=== PATIENT | female | born 1960 | race Asian ===

== ENCOUNTER 2017-03-02 06:30 | Emergency (ER) | payer OTHER ==
[2017-03-02 06:35] VITALS: BP 154/99
[2017-03-02 07:07] LABS: CHLORIDE,CL 104 mEq/L (98-106); SODIUM,NA 142 mEq/L (136-145)
[2017-03-02] MEDS ORDERED: Acetaminophen 325 MG Tab ONE (07:12)
[2017-03-02] MEDS ORDERED: Acetaminophen 325 MG Tab PO ONE (07:19)
--- NOTE | 2017-03-02 08:06 | EDM.PDOC ---
ED HPI GENERAL MEDICAL PROBLEM - General Chief Complaint: Abdominal Pain Stated Complaint: incisional pain Time Seen by Provider: 03/02/17 07:05 Source of Information: Reports: Patient, Family () History Limitations: Reports: No Limitations - History of Present Illness INITIAL COMMENTS - FREE TEXT/NARRATIVE: Hanh vernon a 56 yo female who presents to the ER with complaints of left sided abdominal pain. states she had a hysterectomy on 02/26/[address] [facility] by Dr. Pruitt and was discharged yesterday. she ahs been taking Powell tablets for the discomfort. States last night the pain started and she didn't sleep much thru the night. Hasn't had any bowel movements and tried this morning with minimal relief and very hard stool. She states the pain comes and goes. Is able to pass some gas. states she is from the [facility] and has some difficulty speaking Azeri. Denies any pain at the incision sites. Initially surgery was attempted via laparoscope but ended up having to do an open surgery. Left Abdomen Pain Score (Numeric/FACES): 8 - Related Data Allergies Allergy/AdvReac Type Severity Reaction Status Date / Time No Known Allergies Allergy Verified 03/02/17 06:35 Home Meds: Home Meds Cholecalciferol (Vitamin D3) [Vitamin D3] 1,000 unit PO DAILY 11/08/16 [History] Flaxseed/Omega3,6,9/Fatty Acid [Flax Seed Oil 1,300 mg Softgel] 1 each PO DAILY 11/08/16 [History] Losartan Potassium 50 mg PO DAILY 11/08/16 [History] Magnesium 200 mg PO DAILY 11/08/16 [History] [place]-3 Fatty Acids [Fish Oil] 300 mg PO DAILY 11/08/16 [History] Vitamin E 1,000 unit PO DAILY 11/08/16 [History] Hydrocodone/Acetaminophen [Hydrocodon-Acetaminophen 5-325] 1 - 2 tab PO Q4H PRN 03/02/17 [History] Ibuprofen 800 mg PO Q8H PRN 03/02/17 [History] Past Medical History Cardiovascular History: Reports: Hypertension 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 Denies: Fever, Chills Respiratory: Reports: No Symptoms Cardiovascular: Reports: No Symptoms GI/Abdominal: Reports: Abdominal Pain (LLQ), Constipation, Flatus. Denies: Diarrhea, Nausea, Vomiting : Reports: No Symptoms ED EXAM, GI/ABD - Physical Exam Exam: See Below Exam Limited By: Language Barrier General Appearance: Alert, Mild Distress Ears: Normal External Exam, Hearing Grossly Normal Nose: Normal Inspection Throat/Mouth: Normal Inspection, Normal Lips, Normal Voice, No Airway Compromise Head: Atraumatic, Normocephalic Neck: Normal Inspection, Supple Respiratory/Chest: No Respiratory Distress, Lungs Clear, Normal Breath Sounds Cardiovascular: Regular Rate, Rhythm, No Edema, No Murmur GI/Abdominal: Normal Bowel Sounds, Soft, No Organomegaly, No Abnormal Bruit, Tenderness (LLQ). No: Distention, Rebound, Rigidity, Mass, McBurney's Sign Extremities: Normal Inspection, Normal Capillary Refill Neurological: Alert, Oriented, No Motor/Sensory Deficits Psychiatric: Normal Affect, Normal Mood Skin Exam: Warm, Dry, Intact, Normal Color, No Rash, Wound/Incision (healing well, no dehiscence. No hematoma noted. ) Course - Vital Signs Last Recorded V/S: Last Vital Signs Temp 99.6 F 03/02/17 06:31 Pulse 85 03/02/17 06:31 Resp 18 03/02/17 06:31 BP 154/99 H 03/02/17 06:31 Pulse Ox 94 L 03/02/17 06:31 - Orders/Labs/Meds Orders: Active Orders 24 hr Category Date Time Status Enema [RC] ASDIRECTED Care 03/02/17 07:29 Active Abdomen 2V AP Flat Upright [CR] Stat Exams 03/02/17 06:46 Taken Labs: Laboratory Tests 03/02/17 03/02/17 Range/Units 06:50 06:50 WBC 5.0 (5.0-10.0) 10^3/uL RBC 3.74 L (4.00-5.50) 10^6/uL Hgb 11.2 L (12.0-16.0) g/dL Hct 33.3 L (37.0-47.0) % MCV 89.0 (82.0-94.0) fL MCH 29.9 (27.0-32.0) pg MCHC 33.6 (33.0-38.0) g/dL RDW Coeff of Mirtha 12.9 (11.0-15.0) % Plt Count 151 (150-400) 10^3/uL Neut % (Auto) 62.0 (35-85) % Lymph % (Auto) 24.8 (10-55) % [place] % (Auto) 6.2 (0-16) % Eos % (Auto) 6.8 H (0-5) % Baso % (Auto) 0.2 (0-3) % Neut # (Auto) 3.09 (1.80-7.00) 10^3/uL Lymph # (Auto) 1.24 (1.00-4.80) 10^3/uL [place] # (Auto) 0.31 (0.00-0.80) 10^3/uL Eos # (Auto) 0.34 (0.00-0.45) 10^3/uL Baso # (Auto) 0.01 10^3/uL Sodium 142 (136-145) mEq/L Potassium 4.1 (3.5-5.0) mEq/L Chloride 104 (98-106) mEq/L Carbon Dioxide 29 (21-32) mmol/L BUN 11 (7-18) mg/dL Creatinine 0.8 (0.6-1.0) mg/dL Est Cr Clr Drug Dosing 56.40 mL/min Estimated GFR (MDRD) > 60 (>=60) mL/min Glucose 116 H (75-99) mg/dL Calcium 8.7 (8.4-10.1) mg/dL Total Bilirubin 0.9 (0.0-1.0) mg/dL AST 23 (15-37) U/L ALT 31 (12-78) U/L Alkaline Phosphatase 81 (46-116) U/L Total Protein 7.2 (6.4-8.2) g/dL Albumin 3.5 (3.4-5.0) g/dL Meds: Medications Discontinued Medications Generic Name Dose Route Start Last Admin Trade Name Freq PRN Reason Stop Dose Admin Acetaminophen 650 mg 03/02/17 07:19 03/02/17 07:21 Tylenol PO 03/02/17 07:20 650 mg NOW ONE Administration Acetaminophen Confirm 03/02/17 07:12 03/02/17 07:23 Tylenol Administered 03/02/17 07:13 Not Given Dose 650 mg .ROUTE .STK-MED ONE - Re-Assessments/Exams Free Text/Narrative Re-Assessment/Exam: 03/02/17 08:09 X-ray confirmed moderate amount of stool present in the descending colon. Proceeded with Soap Suds enema with moderate amount of stool evacuated. Tolerated well and pain subsided. No current complaints. Departure - Departure Time of Disposition: 08:10 Disposition: Home, Self-Care 01 Condition: good Clinical Impression: Constipation Qualifiers: Constipation type: drug induced constipation Qualified Code(s): K59.03 - Drug induced constipation - Discharge Information Instructions: Constipation, Adult, [id number] Referrals: Sterling Perez MD [Primary Care Provider] - (Follow up next week with Dr. Perez on Saturday) Forms: ED Department Discharge Additional Instructions: 1) Miralax 17 gms daily 2) Rest 3) Continue to follow discharge instructions from Dr. Pruitt 4) If pain returns or any concerns at all, advise returning for reevaluation. - Problem List & Annotations (1) Constipation SNOMED Code(s): 88405888 Code(s): K59.00 - CONSTIPATION, UNSPECIFIED Status: Acute Current Visit: Yes Qualifiers: Constipation type: drug induced constipation Qualified Code(s): K59.03 - Drug induced constipation - Problem List Review Problem List Initiated/Reviewed/Updated: Yes - My Orders Last 24 Hours: My Active Orders 03/02/17 06:46 Abdomen 2V AP Flat Upright [CR] Stat 03/02/17 07:29 Enema [RC] ASDIRECTED - Assessment/Plan Last 24 Hours: My Active Orders 03/02/17 06:46 Abdomen 2V AP Flat Upright [CR] Stat 03/02/17 07:29 Enema [RC] ASDIRECTED Plan: See course, will discharge at this time. Patient presently has no discomfort or concerns.
== END 2017-03-02 08:20 | disposition home or self-care (01) ==
LOC: CC.ED 06:30
DX: K59.03 Drug induced constipation (principal); I10 Essential (primary) hypertension; Z79.899 Other long term (current) drug therapy; Z90.710 Acquired absence of both cervix and uterus
CPT/HCPCS: 36415; 74020; 80053; 85025; 99284; A9270

== ENCOUNTER 2017-03-27 21:00 | Emergency (ER) | payer OTHER ==
[2017-03-27] MEDS ORDERED: Nitroglycerin 0.4 MG Tab.SL SL ONE (21:23)
--- NOTE | 2017-03-27 22:17 | EDM.PDOC ---
ED HPI GENERAL MEDICAL PROBLEM - General Chief Complaint: Cardiovascular Problem Stated Complaint: high blood pressure Time Seen by Provider: 03/27/17 21:40 Source of Information: Reports: Patient, Family History Limitations: Reports: No Limitations - History of Present Illness INITIAL COMMENTS - FREE TEXT/NARRATIVE: Patient presents with concerns in regards to her blood pressure. She relates that she had a headache earlier and her jaw was numb so she took her blood pressure and it was quite high at 170/106. She did take her Losartan at that time but got concerned. Patient had stopped her Losartan as her and her have been taking tumeric and stewart and was doing quite well. Had a hysterectomy 4 weeks ago and had a recheck appointment earlier today. Has been having more pain in her abdomen, had labs done there earlier and was supposed to call them back for results. states they didn't say anything about her blood pressure at that visit. Was experiencing mild chest pain and palpitations at home. No pain at present. Jaw is better. No shortness of breath. Onset: Today, Gradual Duration: Hour(s): Location: Reports: Head Quality: Reports: Throbbing Severity: Moderate Improves with: Reports: Medication Associated Symptoms: Reports: Chest Pain. Denies: Nausea/Vomiting, Shortness of Breath, Syncope Treatments CAE ENGINEER: Reports: Other Medication(s) Other Treatments CAE ENGINEER: losartan 50 mg Headache Pain Score (Numeric/FACES): 5 - Related Data Allergies Allergy/AdvReac Type Severity Reaction Status Date / Time No Known Allergies Allergy Verified 03/27/17 21:09 Home Meds: Home Meds Cholecalciferol (Vitamin D3) [Vitamin D3] 1,000 unit PO DAILY 11/08/16 [History] Flaxseed/Omega3,6,9/Fatty Acid [Flax Seed Oil 1,300 mg Softgel] 1 each PO DAILY 11/08/16 [History] Losartan Potassium 50 mg PO DAILY 11/08/16 [History] Magnesium 200 mg PO DAILY 11/08/16 [History] [place]-3 Fatty Acids [Fish Oil] 300 mg PO DAILY 11/08/16 [History] Vitamin E 1,000 unit PO DAILY 11/08/16 [History] Ibuprofen 800 mg PO Q8H PRN 03/02/17 [History] Past Medical History HEENT History: Reports: Impaired Vision, Other (See Below) Other HEENT History: TMJ 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 Denies: Fever, Chills HEENT: Reports: Other (jaw pain) Respiratory: Denies: Shortness of Breath, Cough Cardiovascular: Reports: Chest Pain. Denies: Edema, Lightheadedness Endocrine: Denies: Fatigue GI/Abdominal: Reports: Abdominal Pain (dull post op pain). Denies: Nausea, Vomiting : Reports: No Symptoms Musculoskeletal: Reports: No Symptoms Skin: Reports: Other (abdominal incision) Neurological: Reports: Headache Psychiatric: Reports: No Symptoms ED EXAM, GENERAL - Physical Exam Exam: See Below Exam Limited By: No Limitations General Appearance: Alert, WD/WN, No Apparent Distress Eye Exam: Bilateral Eye: PERRL Ears: Normal External Exam, Normal TMs Nose: Normal Inspection, Normal Mucosa, No Blood Throat/Mouth: Normal Inspection, Normal Oropharynx Head: Normocephalic Neck: Normal Inspection, Supple, Non-Tender Respiratory/Chest: No Respiratory Distress, Lungs Clear, Normal Breath Sounds Cardiovascular: Normal Peripheral Pulses, Regular Rate, Rhythm GI/Abdominal: Normal Bowel Sounds, Soft, Non-Tender Extremities: Normal Inspection, Normal Capillary Refill Neurological: Alert, Oriented Skin Exam: Warm, Dry Course - Vital Signs Last Recorded V/S: Last Vital Signs Temp 97.9 F 03/27/17 21:07 Pulse 67 03/27/17 21:07 Resp 18 03/27/17 21:07 BP 137/83 03/27/17 22:20 Pulse Ox 99 03/27/17 21:07 - Orders/Labs/Meds Orders: Active Orders 24 hr Category Date Time Status EKG Documentation Completion [RC] STAT Care 03/27/17 21:19 Active Chest 2V [CR] Stat Exams 03/27/17 21:18 Taken Labs: Laboratory Tests 03/27/17 Range/Units 21:30 Lactate Dehydrogenase 159 (100-190) U/L Creatine Kinase 46 (21-215) U/L Troponin I < 0.017 (0.00-0.06) ng/mL Meds: Medications Discontinued Medications Generic Name Dose Route Start Last Admin Trade Name Doe PRN Reason Stop Dose Admin Nitroglycerin 0.4 mg 03/27/17 21:23 03/27/17 21:28 Nitrostat SL 03/27/17 21:24 0.4 mg ONETIME ONE Administration - Re-Assessments/Exams Free Text/Narrative Re-Assessment/Exam: 03/27/17 8245 Lab results reviewed. Are negative. CXR negative. EKG normal sinus. Advised patient and of results. Blood pressure improved on admit and better even after the nitro. Departure - Departure Time of Disposition: 22:18 Disposition: Home, Self-Care 01 Condition: Good Clinical Impression: Hypertensive urgency Referrals: Sterling Perez MD [Primary Care Provider] - Forms: ED Department Discharge Additional Instructions: 1. Rest 2. Tylenol for headache 3. Take Losartan 50 mg as directed 4. Follow up with Dr. Perez for recheck. Do not stop the Losartan without further direction 5. Call with any questions - My Orders Last 24 Hours: My Active Orders 03/27/17 21:18 Chest 2V [CR] Stat 03/27/17 21:19 EKG Documentation Completion [RC] STAT - Assessment/Plan Last 24 Hours: My Active Orders 03/27/17 21:18 Chest 2V [CR] Stat 03/27/17 21:19 EKG Documentation Completion [RC] STAT
[2017-03-27 22:20] VITALS: BP 137/83
== END 2017-03-27 22:30 | disposition home or self-care (01) ==
LOC: CC.ED 21:00
DX: I16.0 Hypertensive urgency (principal); Z90.710 Acquired absence of both cervix and uterus; Z98.890 Other specified postprocedural states; Z79.899 Other long term (current) drug therapy
CPT/HCPCS: 36415; 71020; 82550; 83615; 84484; 93005; 99284; A9270

== ENCOUNTER 2017-03-31 12:56 | Emergency (ER) | payer OTHER ==
--- NOTE | 2017-03-31 13:19 | EDM.PDOC ---
ED HPI GENERAL MEDICAL PROBLEM - General Chief Complaint: Cardiovascular Problem Stated Complaint: high BP Time Seen by Provider: 03/31/17 12:57 Source of Information: Reports: Patient, Family History Limitations: Reports: No Limitations - History of Present Illness INITIAL COMMENTS - FREE TEXT/NARRATIVE: This patient is a 56 year old female that presents to the ER. This patient has multiple unrelating complaints. The patient reports that she was seen in the ER recently for high blood pressure. The patient reports that again today she was sitting at home, just went to the bathroom, came out and took her blood pressure. She reports she did have hard stool with constipation. She reports a reading of 170s over 107. She reports she became concerned and came to the ER. She reports over the past several days she has had global headache, left jaw pain that she says is TMJ, bilateral arm numbness, chest pain of the left side that she says is her left breast hurting, abdominal rumbling, constipation, blurred vision at times when her BP is high, general weakness, nausea, hot flashes. The patient denies neck pain, neck stiffness, back pain, abd pain, urinary changes, rashes, shortness of breath, syncope. She does report that she had a hysterectomy done 1 month, 2 days ago. I have ordered cardiac workup, urine, and head ct. A this time the patient blood pressure is 146/90. Onset Date: 03/27/17 Location: Reports: Head, Chest Severity: Mild Improves with: Reports: None Worsens with: Reports: None Associated Symptoms: Reports: Chest Pain, Headaches, Nausea/Vomiting, Weakness ( generally). Denies: Confusion, Cough, cough w sputum, Diaphoresis, Fever/Chills , Loss of Appetite, Malaise, Rash, Seizure, Shortness of Breath, Syncope - Related Data Allergies Allergy/AdvReac Type Severity Reaction Status Date / Time No Known Allergies Allergy Verified 03/31/17 13:06 Home Meds: Home Meds Cholecalciferol (Vitamin D3) [Vitamin D3] 1,000 unit PO DAILY 11/08/16 [History] Flaxseed/Omega3,6,9/Fatty Acid [Flax Seed Oil 1,300 mg Softgel] 1 each PO DAILY 11/08/16 [History] Losartan Potassium 50 mg PO DAILY 11/08/16 [History] Magnesium 200 mg PO DAILY 11/08/16 [History] [place]-3 Fatty Acids [Fish Oil] 300 mg PO DAILY 11/08/16 [History] Vitamin E 1,000 unit PO DAILY 11/08/16 [History] Ibuprofen 800 mg PO Q8H PRN 03/02/17 [History] metroNIDAZOLE [Vandazole 0.75% Gel] 1 applic IUTERINE DAILY 03/31/17 [History] Past Medical History HEENT History: Reports: Impaired Vision, Other (See Below) Other HEENT History: TMJ 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 Denies: Syncope Endocrine: Reports: No Symptoms GI/Abdominal: Reports: Constipation, Nausea. Denies: Vomiting : Reports: No Symptoms Musculoskeletal: Reports: No Symptoms Skin: Reports: No Symptoms Neurological: Reports: Headache, Other (numbness bilateral arms. ) Psychiatric: Reports: No Symptoms Hematologic/Lymphatic: Reports: No Symptoms Immunologic: Reports: No Symptoms ED EXAM, GENERAL - Physical Exam Exam: See Below Exam Limited By: No Limitations General Appearance: Alert, WD/WN, No Apparent Distress Eye Exam: Bilateral Eye: EOMI, Normal Inspection, PERRL Ears: Normal External Exam, Normal Canal, Hearing Grossly Normal, Normal TMs Ear Exam: Bilateral Ear: Auricle Normal, Canal Normal, TM normal Nose: Normal Inspection, Normal Mucosa, No Blood Throat/Mouth: Normal Inspection, Normal Lips, Normal Teeth, Normal Gums, Normal Oropharynx, Normal Voice, No Airway Compromise Head: Atraumatic, Normocephalic Neck: Normal Inspection, Supple, Non-Tender, Full Range of Motion Respiratory/Chest: No Respiratory Distress, Lungs Clear, Normal Breath Sounds, No Accessory Muscle Use, Chest Non-Tender Cardiovascular: Normal Peripheral Pulses, Regular Rate, Rhythm, No Edema, No Gallop, No JVD, No Murmur, No Rub Peripheral Pulses: 2+: Carotid (L), Carotid (R), Radial (L), Radial (R), Posterior Tibial (L), Posterior Tibial (R) GI/Abdominal: Normal Bowel Sounds, Soft, Non-Tender, No Organomegaly, No Distention, No Abnormal Bruit, No Mass, Pelvis Stable, Other (healing vertical scar from surgery. No redness, no heat, no draiange, no infection signs. ) Neurological: Alert, Oriented, CN II-XII Intact, Normal Cognition, Normal Gait, No Motor/Sensory Deficits Psychiatric: Normal Affect, Normal Mood Skin Exam: Warm, Dry, Intact, Normal Color, No Rash Lymphatic: No Adenopathy EKG INTERPRETATION EKG Date: 03/31/17 Time: 13:24 Rhythm: NSR Rate (Beats/Min): 64 Hallie: Normal P-Wave: Present QRS: Normal ST-T: Normal QT: Normal Course - Vital Signs Last Recorded V/S: Last Vital Signs Temp 99.2 F 03/31/17 12:57 Pulse 69 03/31/17 12:57 Resp 20 03/31/17 12:57 BP 145/87 H 03/31/17 13:53 Pulse Ox 97 03/31/17 12:57 - Orders/Labs/Meds Orders: Active Orders 24 hr Category Date Time Status Chest 2V [CR] Stat Exams 03/31/17 13:12 Taken Head wo Cont [CT] Stat Exams 03/31/17 13:12 Taken EKG 12 Lead [EK] Routine Ther 03/31/17 14:22 Ordered Labs: Laboratory Tests 03/31/17 03/31/17 03/31/17 Range/Units 13:12 13:12 13:30 WBC 4.3 L (5.0-10.0) 10^3/uL RBC 4.41 (4.00-5.50) 10^6/uL Hgb 13.0 (12.0-16.0) g/dL Hct 38.9 (37.0-47.0) % MCV 88.2 (82.0-94.0) fL MCH 29.5 (27.0-32.0) pg MCHC 33.4 (33.0-38.0) g/dL RDW Coeff of Mirtha 12.6 (11.0-15.0) % Plt Count 162 (150-400) 10^3/uL Neut % (Auto) 43.3 (35-85) % Lymph % (Auto) 45.5 (10-55) % [place] % (Auto) 7.5 (0-16) % Eos % (Auto) 3.5 (0-5) % Baso % (Auto) 0.2 (0-3) % Neut # (Auto) 1.84 (1.80-7.00) 10^3/uL Lymph # (Auto) 1.94 (1.00-4.80) 10^3/uL [place] # (Auto) 0.32 (0.00-0.80) 10^3/uL Eos # (Auto) 0.15 (0.00-0.45) 10^3/uL Baso # (Auto) 0.01 10^3/uL Sodium 142 (136-145) mEq/L Potassium 4.0 (3.5-5.0) mEq/L Chloride 103 (98-106) mEq/L Carbon Dioxide 30 (21-32) mmol/L BUN 12 (7-18) mg/dL Creatinine 0.6 (0.6-1.0) mg/dL Est Cr Clr Drug Dosing TNP Estimated GFR (MDRD) > 60 (>=60) mL/min Glucose 95 (75-99) mg/dL Calcium 9.7 (8.4-10.1) mg/dL Total Bilirubin 0.9 (0.0-1.0) mg/dL AST 15 (15-37) U/L ALT 30 (12-78) U/L Alkaline Phosphatase 89 (46-116) U/L Troponin I < 0.017 (0.00-0.06) ng/mL Total Protein 8.4 H (6.4-8.2) g/dL Albumin 4.3 (3.4-5.0) g/dL TSH, Ultra Sensitive 1.51 (0.36-5.60) uIU/mL Urine Color Yellow (YELLOW) Urine Appearance Clear (CLEAR) Urine pH 5.5 (4.5-8.0) Ur Specific [place] 1.004 (1.003-1.020) Urine Protein Negative (NEGATIVE) mg/dL Urine Glucose (UA) Negative (NEGATIVE) mg/dL Urine Ketones Negative (NEGATIVE) mg/dL Urine Occult Blood Negative (NEGATIVE) Urine Nitrite Negative (NEGATIVE) Urine Bilirubin Negative (NEGATIVE) Urine Urobilinogen 0.2 (0.2-1.0) EU/dL Ur Leukocyte Esterase Negative (NEGATIVE) Urine RBC Not seen (0-5) /HPF Urine WBC Not seen (0-5) /HPF Ur Squamous Epith Cells Occasional H (NOT SEEN) /HPF - Radiology Interpretation Free Text/Narrative:: Head CT: Discussed with radiologist: No bleed, nothing acute, no fx. CT Results Date: 03/31/17 CT Results Time: 14:00 - Re-Assessments/Exams Free Text/Narrative Re-Assessment/Exam: 03/31/17 14:35 Patient reported that she had a short period where she experienced palpitations , ekg was done during this time. Rate is 64, SR, unchanged from previous. 03/31/17 14:51 I have reviewed patient labs, ekg, tests. Everything is unremarkable. At this time, I believe this possibly is due to her hysterecomty and hormone changes. She may also need a holtor monitor set up by her PCP. 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 STABLE. Departure - Departure Time of Disposition: 14:54 Disposition: Home, Self-Care 01 Condition: Good Clinical Impression: Hypertensive urgency Chest pain Qualifiers: Chest pain type: unspecified Qualified Code(s): R07.9 - Chest pain, unspecified Instructions: Hypertension, [id number] Referrals: Sterling Perez MD [Primary Care Provider] - Forms: ED Department Discharge Additional Instructions: Followup with your director dental services Followup with your primary care provider Return to the ER for worsening of condition or any emergent concerns Increase fluids Increase fiber in your diet Take your medications as prescribed - My Orders Last 24 Hours: My Active Orders 03/31/17 13:12 Chest 2V [CR] Stat Head wo Cont [CT] Stat 03/31/17 14:22 EKG 12 Lead [EK] Routine - Assessment/Plan Last 24 Hours: My Active Orders 03/31/17 13:12 Chest 2V [CR] Stat Head wo Cont [CT] Stat 03/31/17 14:22 EKG 12 Lead [EK] Routine Plan: PLEASE SEE RN NOTE FOR PFSH.
[2017-03-31 13:45] LABS: CHLORIDE,CL 103 mEq/L (98-106); SODIUM,NA 142 mEq/L (136-145)
[2017-03-31 14:21] VITALS: BP 145/87
== END 2017-03-31 15:10 | disposition home or self-care (01) ==
LOC: CC.ED 12:56
DX: I16.0 Hypertensive urgency (principal); R07.9 Chest pain, unspecified; H54.7 Unspecified visual loss; Z90.710 Acquired absence of both cervix and uterus; Z79.899 Other long term (current) drug therapy
CPT/HCPCS: 36415; 70450; 71020; 80053; 81001; 84443; 84484; 85025; 93005; 99284

== ENCOUNTER 2017-08-19 22:46 | Emergency (ER) | payer OTHER ==
[2017-08-19] MEDS ORDERED: Sulfamethoxazole/Trimethoprim 800-160 MG Tab PO ONE (22:47)
[2017-08-19] MEDS ORDERED: traMADol 50 MG Tab PO ONE (22:47)
[2017-08-19] MEDS ORDERED: Take Home: traMADol 50 MG, 4 Tab Pack PO ONE (23:34)
[2017-08-19] MEDS ORDERED: Take Home: Sulfamethoxazole/Trimethoprim 800-160 MG Tab, 2 Tab Pack PO ONE (23:35)
[2017-08-19] MEDS ORDERED: Bisacodyl 10 MG Supp RECTAL ONE (23:35)
--- NOTE | 2017-08-19 23:41 | EDM.PDOC ---
ED HPI GENERAL MEDICAL PROBLEM - General Chief Complaint: Back Pain or Injury Stated Complaint: L)upper back pain Time Seen by Provider: 08/19/17 23:18 Source of Information: Reports: Patient, Family History Limitations: Reports: No Limitations - History of Present Illness INITIAL COMMENTS - FREE TEXT/NARRATIVE: Patient presents to [facility] for plethora of complaints. First complaint is in regards to ongoing shoulder and back pain. States Dr. Perez gave her trigger point injections last Saturday and she hasn't felt much relief with them. Denies any injury. Has not seen PT. States they have done a lot of travelling lately so pain may have been triggered by that as well as she admits she has been under more stress. Second, patient is concerned about her blood pressure. Took her blood pressure pill an hour before coming here and checked it and is was 170/107. She has been seen by Dr. Perez recently and her blood pressures were normal with those visits. Has had intermittent issues however with her blood pressure. She was recently in [place] and was seen there by a physician who put her on Amlodopine. She isn't currently taking this as her believes it is a "terrible drug that cuts your circulation off to your muscles as it did with him". She denies chest pain or shortness of breath related to this. Third, patient concerned about ongoing issues with constipation. She has also had this multiple times and was advised to take a stool softener and Miralax but she is not compliant with this. She admits when she was in [place], she did better because she ate better and did more walking. Hasn't had much of a bowel movement in the last week or so and feels she is currently "backed up". Fourth, mentions that she has had ongoing breast concerns. Is actually waiting for a report on this from the clinic. Fifth, admits that she gets dizzy at times. Has been voiding more often with some burning. Not taking any of her Meclizine. questions if bladder infection as when they are in the [facility], they wash their bottoms with a cup of water and he feels it is not clean enough. Duration: Week(s): Location: Reports: Head, Neck, Abdomen, Back Associated Symptoms: Reports: Headaches, Weakness. Denies: Confusion, Chest Pain, Cough, Diaphoresis, Loss of Appetite, Nausea/Vomiting, Shortness of Breath , Syncope Treatments HANDBAG FRAMER: Reports: Other Medication(s) Other Treatments HANDBAG FRAMER: blood pressure pill this evening Left Upper Back Pain Score (Numeric/FACES): 5 - Related Data Allergies Allergy/AdvReac Type Severity Reaction Status Date / Time No Known Allergies Allergy Verified 08/19/17 22:52 Home Meds: Home Meds Losartan Potassium 50 mg PO BID 11/08/16 [History] Ibuprofen 800 mg PO Q8H PRN 03/02/17 [History] Meclizine [Antivert] 25 mg PO DAILY 08/19/17 [History] Past Medical History HEENT History: Reports: Impaired Vision, Other (See Below) Other HEENT History: TMJ Cardiovascular History: Reports: Hypertension Gastrointestinal History: Reports: Chronic Constipation Genitourinary History: Reports: None 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 Denies: Fever, Chills, Malaise, Weakness, Decreased Appetite HEENT: Denies: Ear Pain, Sinus Problem, Throat Pain, Vertigo Respiratory: Denies: Shortness of Breath, Pleuritic Chest Pain, Cough Cardiovascular: Reports: Chest Pain. Denies: Edema, Lightheadedness Endocrine: Reports: Fatigue GI/Abdominal: Reports: Constipation. Denies: Abdominal Pain, Nausea, Vomiting : Reports: Dysuria, Frequency Musculoskeletal: Reports: Shoulder Pain Skin: Reports: No Symptoms Neurological: Reports: Dizziness, Headache Psychiatric: Reports: No Symptoms ED EXAM, UPPER BACK/NECK PAIN - Physical Exam Exam: See Below Exam Limited By: No Limitations General Appearance: Alert, WD/WN, No Apparent Distress Ears Exam: Normal External Exam, Normal TMs Nose Exam: Normal Inspection, Normal Mucousa, No Blood Throat/Mouth Exam: Normal Inspection, Normal Oropharynx Head Exam: Normocephalic Neck Exam: Non-Tender, Full Range of Motion, Tenderness, Tender Lateral Cardiovascular/Respiratory: Regular Rate, Rhythm, Normal Peripheral Pulses GI/Abdominal: Normal Bowel Sounds, Soft, Non-Tender Back Exam: Muscle Spasm (bilateral trapezius area) Extremities: Normal Inspection, Normal Capillary Refill Neurologic: No Motor/Sensory Deficits Psychiatric: Normal Affect, Normal Mood Skin Exam: Normal Color, Warm/Dry Lymphatic: No Adenopathy Course - Vital Signs Last Recorded V/S: Last Vital Signs Temp 97.1 F 08/19/17 22:47 Pulse 74 08/19/17 23:24 Resp 20 08/19/17 22:47 BP 176/105 H 08/20/17 00:06 Pulse Ox 97 08/19/17 22:47 - Orders/Labs/Meds Labs: Laboratory Tests 08/19/17 Range/Units 22:58 Urine Color Straw (YELLOW) Urine Appearance Clear (CLEAR) Urine pH 5.0 (4.5-8.0) Ur Specific [place] <= 1.005 (1.003-1.020) Urine Protein Negative (NEGATIVE) mg/dL Urine Glucose (UA) Negative (NEGATIVE) mg/dL Urine Ketones Negative (NEGATIVE) mg/dL Urine Occult Blood Negative (NEGATIVE) Urine Nitrite Negative (NEGATIVE) Urine Bilirubin Negative (NEGATIVE) Urine Urobilinogen 0.2 (0.2-1.0) EU/dL Ur Leukocyte Esterase Small H (NEGATIVE) Urine RBC Not seen (0-5) /HPF Urine WBC 5-10 H (0-5) /HPF Ur Squamous Epith Cells Occasional H (NOT SEEN) /HPF Urine Bacteria Occasional H (NOT SEEN) /HPF Meds: Medications Discontinued Medications Generic Name Dose Route Start Last Admin Trade Name Freq PRN Reason Stop Dose Admin Bisacodyl 10 mg 08/19/17 23:35 08/19/17 23:40 Dulcolax RECTAL 08/19/17 23:36 Not Given ONETIME ONE Clonidine HCl 0.1 mg 08/19/17 23:52 08/20/17 00:06 Catapres PO 08/19/17 23:53 0.1 mg DAILY ONE Administration Al Hydroxide/Mg Hydroxide 30 0 ml 08/19/17 23:58 08/20/17 00:06 ml/ Lidocaine HCl 15 ml PO 08/19/17 23:59 20 ml ONETIME ONE Administration Tramadol HCl 1 packet 08/19/17 23:34 08/19/17 23:40 Take Home: Tramadol 50 Mg, 4 Tab Pack PO 08/19/17 23:35 Not Given ONETIME ONE Trimethoprim/Sulfamethoxazole 1 packet 08/19/17 23:35 08/19/17 23:40 Take Home: Sulfameth/Trimet 800-160mg, 2 Pack PO 08/19/17 23:36 Not Given ONETIME ONE - Re-Assessments/Exams Free Text/Narrative Re-Assessment/Exam: 08/19/17 23:52 Patient now complaining of chest pain in the left anterior chest and the left trapezius area. Blood pressure repeated. Will give clonidine. EKG ordered. 08/19/17 23:58 EKG normal sinus rhythm, no concern. Complaining of burning in chest. Belching a great deal when got here. Will try GI cocktail. Does feel relief of some of the discomfort. Suppository given due to "feeling bloated and crampy ". 08/20/17 00:33 Passed a great deal of flatus but suppository not in long enough to work. States passed suppository in the bathroom, no stool. Departure - Departure Time of Disposition: 00:35 Disposition: Home, Self-Care 01 Condition: Good Clinical Impression: Trapezius muscle spasm UTI (urinary tract infection) Qualifiers: Urinary tract infection type: acute cystitis Hypertension Qualifiers: Hypertension type: essential hypertension Qualified Code(s): I10 - Essential ( primary) hypertension - Discharge Information Referrals: Sterling Perez MD [Primary Care Provider] - Forms: ED Department Discharge Additional Instructions: 1. Rest 2. Tramadol 50 mg every 6 hours for shoulder pain/muscle spasm/back pain 3. Need to push fluids and increase fiber in diet 4. Miralax 1/2 to 1 scoop daily 5. Use dulcolax tabs as needed for constipation 6. Bactrim 875 mg twice a day for 7 days for bladder infection 7. Increase activity 8. Follow up with Dr. Perez for ongoing concerns with blood pressure, keep log of blood pressure twice a day for 2 weeks and bring log with to discuss with Dr. Perez. 9. Call with questions
[2017-08-19] MEDS ORDERED: cloNIDine 0.1 MG Tab PO ONE (23:52)
[2017-08-19] MEDS ORDERED: Alum Hydrox/Mag Hydrox/Simeth 30 ML, Lidocaine 2% 15 ML PO ONE ×2 (23:58)
[2017-08-20 00:07] VITALS: BP 176/105
== END 2017-08-20 00:48 | disposition home or self-care (01) ==
LOC: CC.ED 22:46
DX: M62.830 Muscle spasm of back (principal); N30.00 Acute cystitis without hematuria; I10 Essential (primary) hypertension; Z79.899 Other long term (current) drug therapy
CPT/HCPCS: 81001; 99283; A9270

== ENCOUNTER 2018-01-16 21:00 | Emergency (ER) | payer OTHER ==
[2018-01-16 21:06] VITALS: BP 157/95
[2018-01-16 21:39] LABS: CHLORIDE,CL 103 mEq/L (98-106); SODIUM,NA 140 mEq/L (136-145)
[2018-01-16] MEDS: Alum Hydrox/Mag Hydrox/Simeth 30 ML, Lidocaine 2% 15 ML PO ONE ×2 (21:46)
--- NOTE | 2018-01-16 21:47 | EDM.PDOC ---
ED HPI GENERAL MEDICAL PROBLEM - General Chief Complaint: Abdominal Pain Stated Complaint: stomach pain Time Seen by Provider: 01/16/18 21:23 Source of Information: Reports: Patient History Limitations: Reports: No Limitations - History of Present Illness INITIAL COMMENTS - FREE TEXT/NARRATIVE: Aleida is a 57 year old female who presents to the ED with c/o epigastric pain. She reports that she has had abdominal pain, of which she has been doctoring with Dr. Perez, for the past few months. She reports she has a history of "ulcers." She reports she was recently started on protonix. She also was started on Fiorinal and Naproxen for headaches and neck pain. She reports that these medications have given her a "stomach ache." She c/o pain in her epigastric area. She does report her stools have been black. however she was recently started on ferrous sulfate. She reports she has struggled with constipation and diarrhea the past few months. She does report she has been passing gas and had 2 bowel movements today. Denies any nausea, vomiting, diarrhea, chest pain, shortness of breath, dizziness. Denies any radiation of the pain. She reports she has been eating and drinking well. She has had multiple labs and abdominal CT in the past few months, all of which were normal. BP elevated, however patient reports she did not take her blood pressure medication today. Onset: Gradual Onset Date: 01/09/18 Duration: Intermittent Location: Reports: Abdomen Quality: Reports: Ache, Burning Severity: Severe Improves with: Reports: None Worsens with: Reports: None Associated Symptoms: Reports: No Other Symptoms. Denies: Confusion, Chest Pain , Cough, cough w sputum, Diaphoresis, Fever/Chills, Headaches, Loss of Appetite , Malaise, Nausea/Vomiting, Rash, Seizure, Shortness of Breath, Syncope, Weakness Treatments PROFESSIONAL DEVELOPMENT DIRECTOR: Reports: NSAIDS Abdominal Pain Score (Numeric/FACES): 8 - Related Data Allergies Allergy/AdvReac Type Severity Reaction Status Date / Time No Known Allergies Allergy Verified 08/19/17 22:52 Home Meds: Home Meds Ibuprofen 800 mg PO Q8H PRN 03/02/17 [History] Biotin 1 mg PO DAILY 01/16/18 [History] Butalbital/Aspirin/Caffeine [Fiorinal 50-325-40 MG] 1 tab PO DAILY 01/16/18 [ History] Ferrous Sulfate 140 mg PO DAILY 01/16/18 [History] Lisinopril 20 mg PO DAILY 01/16/18 [History] Naproxen 500 mg PO DAILY 01/16/18 [History] Pantoprazole [ProTONIX] 40 mg PO DAILY 01/16/18 [History] Sucralfate [Carafate] 1 gm PO ASDIRECTED 30 Days #90 tablet 01/16/18 [Rx] Past Medical History HEENT History: Reports: Impaired Vision, Other (See Below) Other HEENT History: TMJ Cardiovascular History: Reports: Hypertension Respiratory History: Reports: None Gastrointestinal History: Reports: Chronic Constipation, Other (See Below) Other Gastrointestinal History: ulcers Genitourinary History: Reports: None, Renal Calculus BACK HANGER History: Reports: Musculoskeletal History: Reports: None Neurological History: Reports: None Psychiatric History: Reports: None Endocrine/Metabolic History: Reports: None Hematologic History: Reports: None Immunologic History: Reports: None Oncologic (Cancer) History: Reports: None Dermatologic History: Reports: None - Infectious Disease History Infectious Disease History: Reports: None - Past Surgical History Head Surgeries/Procedures: Reports: None GI Surgical History: Reports: None Female Surgical History: Reports: Section, Hysterectomy, Lithotripsy /ESWL Endocrine Surgical History: Reports: None Neurological Surgical History: Reports: None Social & Family History - Family History Family Medical History: Noncontributory - Tobacco Use Smoking Status *Q: Never Smoker - Caffeine Use Caffeine Use: Reports: None - Recreational Drug Use Recreational Drug Use: No ED ROS GENERAL - Review of Systems Review Of Systems: See Below Constitutional: Denies: Fever, Chills, Malaise, Weakness, Fatigue, Decreased Appetite, Weight Loss Respiratory: Reports: No Symptoms. Denies: Shortness of Breath, Cough Cardiovascular: Reports: No Symptoms. Denies: Chest Pain, Dyspnea on Exertion, Edema, Lightheadedness, Syncope GI/Abdominal: Reports: Abdominal Pain, Black Stool, Nausea. Denies: Anorexia, Bloody Stool, Constipation, Diarrhea, Decreased Appetite, Distension, Flatus, Hematemesis, Hematochezia, Melena, Mucous in Stool, Stool Incontinence, Vomiting : Reports: No Symptoms. Denies: Dysuria, Pain, Urgency Musculoskeletal: Reports: No Symptoms Skin: Reports: No Symptoms Neurological: Reports: No Symptoms Psychiatric: Reports: No Symptoms Hematologic/Lymphatic: Reports: No Symptoms Immunologic: Reports: No Symptoms ED EXAM, GI/ABD - Physical Exam Exam: See Below Exam Limited By: No Limitations General Appearance: Alert, WD/WN, No Apparent Distress Head: Atraumatic, Normocephalic Neck: Normal Inspection, Supple, Non-Tender, Full Range of Motion Respiratory/Chest: No Respiratory Distress, Lungs Clear, Normal Breath Sounds, No Accessory Muscle Use, Chest Non-Tender Cardiovascular: Normal Peripheral Pulses, Regular Rate, Rhythm, No Edema, No Gallop, No JVD, No Murmur, No Rub GI/Abdominal Exam: Normal Bowel Sounds, Soft, No Organomegaly, No Distention, No Mass, Pelvis Stable, Tender (epigastric area). No: Guarding, Rigid, Rebound Extremities: Normal Inspection, Normal Range of Motion, Non-Tender, Normal Capillary Refill, No Pedal Edema Neurological: Alert, Oriented, CN II-XII Intact, Normal Cognition, Normal Gait, Normal Reflexes, No Motor/Sensory Deficits Psychiatric: Normal Affect, Normal Mood Skin Exam: Warm, Dry, Intact, Normal Color, No Rash Lymphatic: No Adenopathy Course - Vital Signs Last Recorded V/S: Last Vital Signs Temp 97 F 01/16/18 21:00 Pulse 78 01/16/18 21:00 Resp 18 01/16/18 21:00 BP 157/95 H 01/16/18 21:00 Pulse Ox 97 01/16/18 21:00 - Orders/Labs/Meds Labs: Laboratory Tests 01/16/18 01/16/18 Range/Units 21:20 21:20 WBC 5.1 (5.0-10.0) 10^3/uL RBC 4.50 (4.00-5.50) 10^6/uL Hgb 13.2 (12.0-16.0) g/dL Hct 39.0 (37.0-47.0) % MCV 86.7 (82.0-94.0) fL MCH 29.3 (27.0-32.0) pg MCHC 33.8 (33.0-38.0) g/dL RDW Coeff of Mirtha 12.7 (11.0-15.0) % Plt Count 168 (150-400) 10^3/uL Neut % (Auto) 48.7 (35-85) % Lymph % (Auto) 38.1 (10-55) % [place] % (Auto) 7.9 (0-16) % Eos % (Auto) 5.1 H (0-5) % Baso % (Auto) 0.2 (0-3) % Neut # (Auto) 2.48 (1.80-7.00) 10^3/uL Lymph # (Auto) 1.94 (1.00-4.80) 10^3/uL [place] # (Auto) 0.40 (0.00-0.80) 10^3/uL Eos # (Auto) 0.26 (0.00-0.45) 10^3/uL Baso # (Auto) 0.01 10^3/uL Sodium 140 (136-145) mEq/L Potassium 3.9 (3.5-5.0) mEq/L Chloride 103 (98-106) mEq/L Carbon Dioxide 26 (21-32) mmol/L BUN 19 H (7-18) mg/dL Creatinine 0.7 (0.6-1.0) mg/dL Est Cr Clr Drug Dosing 63.69 mL/min Estimated GFR (MDRD) > 60 (>=60) mL/min Glucose 213 H D (75-99) mg/dL Calcium 8.6 (8.4-10.1) mg/dL Total Bilirubin 0.5 (0.0-1.0) mg/dL AST 16 (15-37) U/L ALT 33 (12-78) U/L Alkaline Phosphatase 96 (46-116) U/L C-Reactive Protein < 0.2 L (0.2-0.8) mg/dL Total Protein 7.5 (6.4-8.2) g/dL Albumin 4.2 (3.4-5.0) g/dL Meds: Medications Discontinued Medications Generic Name Dose Route Start Last Admin Trade Name Freq PRN Reason Stop Dose Admin Al Hydroxide/Mg Hydroxide 30 0 ml 01/16/18 21:40 01/16/18 21:46 ml/ Lidocaine HCl 15 ml PO 01/16/18 21:41 45 ml ONETIME ONE Administration - Re-Assessments/Exams Free Text/Narrative Re-Assessment/Exam: 01/16/18 21:45 Discussed lab results with patient and spouse. Labs all normal. Hemoglobin stable. Will give GI cocktail to see if this helps symptoms. 01/16/18 21:53 Patient reports pain improved with GI cocktail. Will discharge home on carafate TID before meals. Departure - Departure Time of Disposition: 21:59 Disposition: Home, Self-Care 01 Condition: Good Clinical Impression: GERD (gastroesophageal reflux disease) Qualifiers: Esophagitis presence: with esophagitis Qualified Code(s): K21.0 - Gastro- esophageal reflux disease with esophagitis - Discharge Information Prescriptions: Sucralfate [Carafate] 1 gm PO ASDIRECTED 30 Days #90 tablet Instructions: Abdominal Pain, Adult, [id number], Food Choices for Gastroesophageal Reflux Disease, Adult, [id number], Gastroesophageal Reflux Disease, Adult, [id number] Referrals: Sterling Perez MD [Primary Care Provider] - Forms: ED Department Discharge Additional Instructions: 1) Carafate 30 minutes before meals. See if this helps improve abdominal pain 2) Continue protonix daily 3) Refrain from NSAID (Naproxen, ibuprofen etc.) use until stomach pain improves 4) Small, more frequent meals rather than large meals 5) Maalox as needed for abdominal pain 6) Follow up with Dr. Perez next week
== END 2018-01-16 22:10 | disposition home or self-care (01) ==
LOC: CC.ED 21:00
DX: K21.0 Gastro-esophageal reflux disease with esophagitis (principal); I10 Essential (primary) hypertension; Z79.899 Other long term (current) drug therapy
CPT/HCPCS: 36415; 80053; 85025; 86140; 99283; A9270-GY

== ENCOUNTER 2018-04-16 00:15 | Emergency (ER) | payer OTHER ==
[2018-04-16 00:44] VITALS: BP 138/90
[2018-04-16 00:59] LABS: CHLORIDE,CL 103 mEq/L (98-106); SODIUM,NA 141 mEq/L (136-145)
--- NOTE | 2018-04-16 01:16 | EDM.PDOC ---
ED HPI GENERAL MEDICAL PROBLEM - General Chief Complaint: General Stated Complaint: PALPITATIONS/HTN Time Seen by Provider: 04/16/18 00:32 Source of Information: Reports: Patient, Family () History Limitations: Reports: No Limitations - History of Present Illness INITIAL COMMENTS - FREE TEXT/NARRATIVE: Aleida is a 57 yr old female who presents to the ER with complaints of palpitations in her chest and left ear pain. Both symptoms have been ongoing for years. Has been seen in the ER for the palpitations in the past with no identifiable cause. She states this evening she just didn't feel right. Has a history of high blood pressure. States she checked her blood pressure at home and it was elevated to 180 over 100. She states whenever her blood pressure rises she gets some numbness in her face, fullness in her left ear and doesn't overall feel well. She states presently she is having palpitation. EKG while getting subjective history shows NSR at 58bpm. She states she stays fairly active walking every day. Admits to walking 1-2 hours per day. She does like [place] food and does use extra salt. States she will drink a fair amount of coffee daily as well. - Related Data Allergies Allergy/AdvReac Type Severity Reaction Status Date / Time No Known Allergies Allergy Verified 04/16/18 00:32 Home Meds: Home Meds Ibuprofen 800 mg PO Q8H PRN 03/02/17 [History] Biotin 1 mg PO DAILY 01/16/18 [History] Lisinopril 20 mg PO DAILY 01/16/18 [History] Naproxen 500 mg PO DAILY PRN 01/16/18 [History] Cholecalciferol (Vitamin D3) [Vitamin D3] 5,000 units PO DAILY 04/16/18 [History ] Fluticasone Propionate [Flonase] 1 spray IN DAILY PRN 04/16/18 [History] Turmeric [Curcumin] 1 gm PO DAILY 04/16/18 [History] Ubidecarenone [COQ-10] 30 mg PO DAILY 04/16/18 [History] Past Medical History HEENT History: Reports: Impaired Vision, Other (See Below) Other HEENT History: TMJ Cardiovascular History: Reports: Hypertension Respiratory History: Reports: None Gastrointestinal History: Reports: Chronic Constipation, Other (See Below) Other Gastrointestinal History: ulcers Genitourinary History: Reports: Renal Calculus 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: Musculoskeletal History: Reports: None Neurological History: Reports: None Psychiatric History: Reports: None Endocrine/Metabolic History: Reports: None Hematologic History: Reports: None Immunologic History: Reports: None Oncologic (Cancer) History: Reports: None Dermatologic History: Reports: None - Infectious Disease History Infectious Disease History: Reports: None - Past Surgical History Head Surgeries/Procedures: Reports: None GI Surgical History: Reports: Other (See Below) Other GI Surgeries/Procedures: RECTOCELE Female Surgical History: Reports: Section, Hysterectomy, Lithotripsy /ESWL Endocrine Surgical History: Reports: None Neurological Surgical History: Reports: None Social & Family History - Family History Family Medical History: Noncontributory - Tobacco Use Smoking Status *Q: Never Smoker - Caffeine Use Caffeine Use: Reports: None - Recreational Drug Use Recreational Drug Use: No ED ROS GENERAL - Review of Systems Review Of Systems: ROS reveals no pertinent complaints other than HPI. HEENT: Reports: Ear Pain (left, chronic), Sinus Problem. Denies: Ear Discharge , Vision Change Respiratory: Reports: Cough (dry cough from Lisinopril). Denies: Shortness of Breath, Wheezing Cardiovascular: Reports: Blood Pressure Problem, Palpitations. Denies: Chest Pain, Claudication, Dyspnea on Exertion, Edema, Syncope GI/Abdominal: Reports: No Symptoms Skin: Reports: No Symptoms Neurological: Reports: No Symptoms Psychiatric: Reports: Anxiety ED EXAM, GENERAL - Physical Exam Exam: See Below Exam Limited By: No Limitations General Appearance: Alert, No Apparent Distress Eye Exam: Bilateral Eye: Normal Inspection, PERRL Ears: Normal External Exam, Hearing Grossly Normal, Normal TMs, Other (serous middle ear effusion left ear) Nose: Normal Inspection, No Blood Throat/Mouth: Normal Inspection, Normal Lips, Normal Teeth, Normal Gums, Normal Oropharynx, Normal Voice, No Airway Compromise Head: Atraumatic, Normocephalic Neck: Normal Inspection, Supple Respiratory/Chest: No Respiratory Distress, Lungs Clear, No Accessory Muscle Use Cardiovascular: Normal Peripheral Pulses, Regular Rate, Rhythm, No Edema, No Murmur, No Rub Extremities: Normal Inspection, No Pedal Edema Neurological: Alert, Oriented, Normal Cognition, No Motor/Sensory Deficits Psychiatric: Normal Affect, Normal Mood Skin Exam: Warm, Dry, Intact, Normal Color, No Rash Course - Vital Signs Last Recorded V/S: Last Vital Signs Temp 96.7 F 04/16/18 00:21 Pulse 62 04/16/18 00:21 Resp 18 04/16/18 00:21 BP 138/90 04/16/18 00:44 Pulse Ox 98 04/16/18 00:21 - Orders/Labs/Meds Orders: Active Orders 24 hr Category Date Time Status C-REACTIVE PROTEIN [CHEM] Stat Lab 04/16/18 00:42 Results COMPREHENSIVE METABOLIC PN,CMP [CHEM] Stat Lab 04/16/18 00:42 Results CREATINE KINASE,CK [CHEM] Stat Lab 04/16/18 00:42 Results LACTATE DEHYDROGENASE,LDH [CHEM] Stat Lab 04/16/18 00:42 Results TROPONIN I [CHEM] Stat Lab 04/16/18 00:42 Results Labs: Laboratory Tests 04/16/18 04/16/18 04/16/18 Range/Units 00:42 00:42 00:42 WBC 5.3 (5.0-10.0) 10^3/uL RBC 4.30 (4.00-5.50) 10^6/uL Hgb 12.4 (12.0-16.0) g/dL Hct 37.1 (37.0-47.0) % MCV 86.3 (82.0-94.0) fL MCH 28.8 (27.0-32.0) pg MCHC 33.4 (33.0-38.0) g/dL RDW Coeff of Mirtha 12.6 (11.0-15.0) % Plt Count 171 (150-400) 10^3/uL Neut % (Auto) 37.5 (35-85) % Lymph % (Auto) 50.9 (10-55) % [place] % (Auto) 7.2 (0-16) % Eos % (Auto) 4.0 (0-5) % Baso % (Auto) 0.4 (0-3) % Neut # (Auto) 1.97 (1.80-7.00) 10^3/uL Lymph # (Auto) 2.67 (1.00-4.80) 10^3/uL [place] # (Auto) 0.38 (0.00-0.80) 10^3/uL Eos # (Auto) 0.21 (0.00-0.45) 10^3/uL Baso # (Auto) 0.02 10^3/uL PT 10.1 (9.7-12.3) SEC INR 0.97 (0.92-1.18) Sodium 141 (136-145) mEq/L Potassium 3.8 (3.5-5.0) mEq/L Chloride 103 (98-106) mEq/L Carbon Dioxide 28 (21-32) mmol/L BUN 19 H (7-18) mg/dL Creatinine 0.8 (0.6-1.0) mg/dL Est Cr Clr Drug Dosing 55.73 mL/min Estimated GFR (MDRD) > 60 (>=60) mL/min Glucose 129 H (75-99) mg/dL Calcium 9.1 (8.4-10.1) mg/dL Total Bilirubin 0.5 (0.0-1.0) mg/dL AST 28 (15-37) U/L ALT 53 (12-78) U/L Alkaline Phosphatase 82 (46-116) U/L Lactate Dehydrogenase 175 (100-190) U/L Creatine Kinase 78 (21-215) U/L Troponin I < 0.017 (0.00-0.06) ng/mL Total Protein 7.2 (6.4-8.2) g/dL Albumin 4.1 (3.4-5.0) g/dL Departure - Departure Time of Disposition: 01:16 Disposition: Home, Self-Care 01 Clinical Impression: Intermittent palpitations Middle ear effusion Qualifiers: Laterality: left Qualified Code(s): H65.92 - Unspecified nonsuppurative otitis media, left ear - Discharge Information *PRESCRIPTION DRUG MONITORING PROGRAM REVIEWED*: Not Applicable *COPY OF PRESCRIPTION DRUG MONITORING REPORT IN PATIENT KARI: Not Applicable Referrals: PCP,None [Primary Care Provider] - Additional Instructions: Findings discussed with Aleida and her .... EKG showed Normal Rhythm, no identifiable cause of palpitations Laboratory work was unremarkable, no sign of heart damage. Advise using Flonase daily to bilateral nostrils. Encourage decreasing salt and caffeine intake; to include coffee! Recommend establishing care for further evaluation and follow up in clinic next week. Return to ER if any concerns. - My Orders Last 24 Hours: My Active Orders 04/16/18 00:42 C-REACTIVE PROTEIN [CHEM] Stat COMPREHENSIVE METABOLIC PN,CMP [CHEM] Stat CREATINE KINASE,CK [CHEM] Stat LACTATE DEHYDROGENASE,LDH [CHEM] Stat TROPONIN I [CHEM] Stat - Assessment/Plan Last 24 Hours: My Active Orders 04/16/18 00:42 C-REACTIVE PROTEIN [CHEM] Stat COMPREHENSIVE METABOLIC PN,CMP [CHEM] Stat CREATINE KINASE,CK [CHEM] Stat LACTATE DEHYDROGENASE,LDH [CHEM] Stat TROPONIN I [CHEM] Stat
== END 2018-04-16 01:30 | disposition home or self-care (01) ==
LOC: CC.ED 00:15
DX: R00.2 Palpitations (principal); H65.92 Unspecified nonsuppurative otitis media, left ear; I10 Essential (primary) hypertension; Z79.899 Other long term (current) drug therapy
CPT/HCPCS: 36415; 80053; 82550; 83615; 84484; 85025; 85610; 86140; 99285

== ENCOUNTER 2018-08-10 17:09 | Emergency (ER) | payer OTHER ==
[2018-08-10 17:14] VITALS: BP 192/102
--- NOTE | 2018-08-10 17:43 | EDM.PDOC ---
ED HPI GENERAL MEDICAL PROBLEM - General Chief Complaint: Cardiovascular Problem Stated Complaint: HIGH BLOOD PRESSURE Time Seen by Provider: 08/10/18 17:20 Source of Information: Reports: Patient History Limitations: Reports: No Limitations - History of Present Illness INITIAL COMMENTS - FREE TEXT/NARRATIVE: patient reports hx of HTN for which she regularly takes lisnopril. she monitors her BP at home with an electric machine which gave a high reading this evening ( 180/102). Here in ED her BP was checked manually and found to be 140 / 80. She initially denies any complaints to the RN but upon speaking to me reported chest pain and neck pain. Patient is a poor historian and gives vague, often contradictory answers. Unable to obtain a meaningful HPI. Onset: Gradual, Unknown/Unsure Location: Reports: Other (neck and chest) Quality: Reports: Ache Severity: Mild Improves with: Reports: None Worsens with: Reports: None Associated Symptoms: Reports: Cough Generalized Pain Score (Numeric/FACES): 8 - Related Data Allergies Allergy/AdvReac Type Severity Reaction Status Date / Time No Known Allergies Allergy Verified 08/10/18 17:15 Home Meds: Home Meds Lisinopril 20 mg PO DAILY 01/16/18 [History] Past Medical History HEENT History: Reports: Impaired Vision, Other (See Below) Other HEENT History: TMJ Cardiovascular History: Reports: Hypertension Respiratory History: Reports: None Gastrointestinal History: Reports: Chronic Constipation, Other (See Below) Other Gastrointestinal History: ulcers Genitourinary History: Reports: 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: Musculoskeletal History: Reports: None Neurological History: Reports: None Psychiatric History: Reports: None Endocrine/Metabolic History: Reports: None Hematologic History: Reports: None Immunologic History: Reports: None Oncologic (Cancer) History: Reports: None Dermatologic History: Reports: None - Infectious Disease History Infectious Disease History: Reports: None - Past Surgical History Head Surgeries/Procedures: Reports: None GI Surgical History: Reports: Other (See Below) Other GI Surgeries/Procedures: RECTOCELE Female Surgical History: Reports: Section, Hysterectomy, Lithotripsy /ESWL Endocrine Surgical History: Reports: None Neurological Surgical History: Reports: None Social & Family History - Family History Family Medical History: Noncontributory - Caffeine Use Caffeine Use: Reports: None ED ROS GENERAL - Review of Systems Review Of Systems: See Below Constitutional: Denies: Fever, Chills HEENT: Reports: No Symptoms Respiratory: Reports: Cough, Hemoptysis, Other (patient reports blood tinged sputum while coughing this am). Denies: Shortness of Breath Cardiovascular: Reports: Chest Pain, Blood Pressure Problem. Denies: Claudication, Dyspnea on Exertion, Edema, Lightheadedness, Orthopnea, Palpitations, PND, Syncope GI/Abdominal: Denies: Abdominal Pain, Diarrhea, Nausea, Vomiting : Denies: Dysuria Musculoskeletal: Reports: Neck Pain Skin: Denies: Cyanosis, Rash Neurological: Denies: Confusion, Dizziness ED EXAM, GENERAL - Physical Exam Exam: See Below Exam Limited By: No Limitations General Appearance: Alert, WD/WN, No Apparent Distress Eye Exam: Bilateral Eye: PERRL Throat/Mouth: Normal Oropharynx, Normal Voice Head: Atraumatic, Normocephalic Neck: Normal Inspection, Supple, Non-Tender, Full Range of Motion. No: Lymphadenopathy (L), Lymphadenopathy (R) Respiratory/Chest: No Respiratory Distress, Lungs Clear, Normal Breath Sounds, No Accessory Muscle Use, Chest Non-Tender Cardiovascular: Normal Peripheral Pulses, Regular Rate, Rhythm, No Edema Peripheral Pulses: 2+: Radial (L), Radial (R) GI/Abdominal: Soft, Non-Tender Extremities: Normal Capillary Refill Neurological: Alert, Oriented, Normal Cognition Psychiatric: Normal Affect, Normal Mood Skin Exam: Warm, Dry, Intact Course - Vital Signs Last Recorded V/S: Last Vital Signs Temp 37.1 C 08/10/18 17:11 Pulse 82 08/10/18 17:11 Resp 18 08/10/18 17:11 BP 192/102 H 08/10/18 17:11 Pulse Ox 100 08/10/18 17:11 - Orders/Labs/Meds Orders: Active Orders 24 hr Category Date Time Status EKG Documentation Completion [RC] STAT Care 08/10/18 17:26 Active Chest 2V [CR] Stat Exams 08/10/18 17:27 Taken Labs: Laboratory Tests 08/10/18 08/10/18 Range/Units 17:45 17:45 WBC 6.0 (5.0-10.0) 10^3/uL RBC 4.55 (4.00-5.50) 10^6/uL Hgb 13.1 (12.0-16.0) g/dL Hct 39.1 (37.0-47.0) % MCV 85.9 (82.0-94.0) fL MCH 28.8 (27.0-32.0) pg MCHC 33.5 (33.0-38.0) g/dL RDW Coeff of Mirtha 12.9 (11.0-15.0) % Plt Count 175 (150-400) 10^3/uL Neut % (Auto) 61.8 (35-85) % Lymph % (Auto) 31.1 (10-55) % [place] % (Auto) 5.7 (0-16) % Eos % (Auto) 1.2 (0-5) % Baso % (Auto) 0.2 (0-3) % Neut # (Auto) 3.68 (1.80-7.00) 10^3/uL Lymph # (Auto) 1.85 (1.00-4.80) 10^3/uL [place] # (Auto) 0.34 (0.00-0.80) 10^3/uL Eos # (Auto) 0.07 (0.00-0.45) 10^3/uL Baso # (Auto) 0.01 10^3/uL Sodium 139 (136-145) mEq/L Potassium 4.1 (3.5-5.0) mEq/L Chloride 102 (98-106) mEq/L Carbon Dioxide 28 (21-32) mmol/L BUN 17 (7-18) mg/dL Creatinine 0.8 (0.6-1.0) mg/dL Est Cr Clr Drug Dosing 55.73 mL/min Estimated GFR (MDRD) > 60 (>=60) mL/min Glucose 122 H (75-99) mg/dL Calcium 9.6 (8.4-10.1) mg/dL Troponin I < 0.017 (0.00-0.06) ng/mL Departure - Departure Time of Disposition: 18:17 Disposition: Home, Self-Care 01 Condition: Good Clinical Impression: Hypertension Qualifiers: Hypertension type: essential hypertension Qualified Code(s): I10 - Essential ( primary) hypertension Instructions: How to Take Your Blood Pressure, Managing Your Hypertension Forms: ED Department Discharge Additional Instructions: Rest Hydrate OTC pain control as needed Follow up with your primary care doctor in 3-5 days Go to closest ER if change or worse - My Orders Last 24 Hours: My Active Orders 08/10/18 17:26 EKG Documentation Completion [RC] STAT 08/10/18 17:27 Chest 2V [CR] Stat - Assessment/Plan Last 24 Hours: My Active Orders 08/10/18 17:26 EKG Documentation Completion [RC] STAT 08/10/18 17:27 Chest 2V [CR] Stat Assessment:: HTN Unclear etiology. EKG NSR without ST-T changes. Labs WNL. Troponin negative. CXR negative and unchanged from previous study. Upon reexam patient reports no chest pain but sinus pressure. She then reports a significant amount of "stress " due to family concerns. Advised patient and spouse at bedside to rest, hydrate , OTC pain control as needed, follow up with your primary care doctor in 3-5 days, go to closest ER if change or worse. Patient and spouse report understanding and agreement with plan. DC home stable in care of spouse.
[2018-08-10 18:08] LABS: CHLORIDE,CL 102 mEq/L (98-106); SODIUM,NA 139 mEq/L (136-145)
== END 2018-08-10 18:30 | disposition home or self-care (01) ==
LOC: CC.ED 17:09
DX: I10 Essential (primary) hypertension (principal); Z79.899 Other long term (current) drug therapy
CPT/HCPCS: 36415; 71046; 80048; 84484; 85025; 93005; 99284

== ENCOUNTER 2019-04-01 04:29 | Emergency (ER) | payer OTHER ==
[2019-04-01 04:32] VITALS: BP 142/95
[2019-04-01] MEDS ORDERED: Alum Hydrox/Mag Hydrox/Simeth 30 ML, Lidocaine 2% 15 ML PO ONE ×2 (05:08)
--- NOTE | 2019-04-01 05:25 | EDM.PDOC ---
ED HPI GENERAL MEDICAL PROBLEM - General Chief Complaint: ENT Problem Stated Complaint: bones in throat Time Seen by Provider: 04/01/19 05:05 Source of Information: Reports: Patient, Family History Limitations: Reports: No Limitations - History of Present Illness INITIAL COMMENTS - FREE TEXT/NARRATIVE: Patient presents to ER with complaints of burning in her throat. Awoke at 0400 with sensation of "bones in my throat". Had salmon for supper and wonders if swallowed a bone. Did not have any choking sensation or swallowing concerns after supper. She awoke and was coughing and "sputtering and spitting" per . Was worried she was choking but has been drinking water since the event. Now feels the "poking" sensation and burning. No shortness of breath. Relates that she was in to see Dr. Duncan earlier today for back pain and breast pain. Is scheduled to see PT. Onset: Today, Sudden Duration: Minutes:, Constant Location: Reports: Neck Quality: Reports: Burning Severity: Moderate Improves with: Reports: None Associated Symptoms: Denies: Confusion, Chest Pain, Cough, Fever/Chills, Nausea/ Vomiting - Related Data Allergies Allergy/AdvReac Type Severity Reaction Status Date / Time No Known Allergies Allergy Verified 04/01/19 04:30 Home Meds: Home Meds Lisinopril 20 mg PO DAILY 01/16/18 [History] Past Medical History HEENT History: Reports: Impaired Vision, Other (See Below) Other HEENT History: TMJ Cardiovascular History: Reports: Hypertension Respiratory History: Reports: None Gastrointestinal History: Reports: Chronic Constipation, Other (See Below) Other Gastrointestinal History: ulcers Genitourinary History: Reports: Renal Calculus 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: Musculoskeletal History: Reports: Arthritis, Other (See Below) 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 Neurological History: Reports: None Psychiatric History: Reports: None Endocrine/Metabolic History: Reports: None Hematologic History: Reports: None Immunologic History: Reports: None Oncologic (Cancer) History: Reports: None Dermatologic History: Reports: None - Infectious Disease History Infectious Disease History: Reports: None - Past Surgical History Head Surgeries/Procedures: Reports: None GI Surgical History: Reports: Other (See Below) Other GI Surgeries/Procedures: RECTOCELE Female Surgical History: Reports: Section, Hysterectomy, Lithotripsy /ESWL Endocrine Surgical History: Reports: None Neurological Surgical History: Reports: None Social & Family History - Family History Family Medical History: Noncontributory - Tobacco Use Smoking Status *Q: Never Smoker - Caffeine Use Caffeine Use: Reports: None - Recreational Drug Use Recreational Drug Use: No ED ROS ENT - Review of Systems Review Of Systems: See Below Constitutional: Denies: Fever, Chills, Malaise, Weakness, Fatigue HEENT: Reports: Sinus Problem, Throat Pain. Denies: Ear Pain Respiratory: Reports: Cough (initially was coughing when awoke, now has subsided ). Denies: Shortness of Breath Cardiovascular: Denies: Chest Pain Endocrine: Reports: No Symptoms GI/Abdominal: Denies: Abdominal Pain, Nausea, Vomiting Neurological: Reports: No Symptoms ED EXAM, ENT - Physical Exam Exam: See Below Exam Limited By: No Limitations General Appearance: Alert, WD/WN, No Apparent Distress Ears: Normal External Exam, Normal TMs Nose: Normal Inspection, Normal Mucousa, No Blood Mouth/Throat: Normal Inspection, Normal Oropharynx, Other (no foreign body in the posterior pharynx) Head: Normocephalic Neck: Normal Inspection, Supple, Non-Tender Respiratory/Chest: No Respiratory Distress, Lungs Clear, Normal Breath Sounds Cardiovascular: Regular Rate, Rhythm Neurological: Alert, Oriented Skin: Warm, Dry Course - Vital Signs Last Recorded V/S: Last Vital Signs Temp 98.8 F 04/01/19 04:30 Pulse 71 04/01/19 04:30 Resp 18 04/01/19 04:30 BP 142/95 H 04/01/19 04:30 Pulse Ox 96 04/01/19 04:30 - Orders/Labs/Meds Meds: Medications Discontinued Medications Generic Name Dose Route Start Last Admin Trade Name Doe PRN Reason Stop Dose Admin Al Hydroxide/Mg Hydroxide 30 0 ml 04/01/19 05:08 04/01/19 05:10 ml/ Lidocaine HCl 15 ml PO 04/01/19 05:09 45 ml ONETIME ONE Administration - Re-Assessments/Exams Free Text/Narrative Re-Assessment/Exam: 04/01/19 0515 Patient sipping water. Strep screen negative. Given GI cocktail, states helped minimally. Able to then eat bread with peanut butter. Continues to have sensation. Discharge home with magic mouthwash as may have irritation. If continues to have persisting concerns with foreign body present, will need to consider EGD. Patient and aware Departure - Departure Time of Disposition: 05:22 Disposition: Home, Self-Care 01 Condition: Good Clinical Impression: Foreign body sensation in throat - Discharge Information *PRESCRIPTION DRUG MONITORING PROGRAM REVIEWED*: No *COPY OF PRESCRIPTION DRUG MONITORING REPORT IN PATIENT KARI: No Referrals: Pietro Duncan MD [Primary Care Provider] - Forms: ED Department Discharge Additional Instructions: 1. Push fluids 2. Magic mouthwash~ one teaspoon every 4 hours as needed for throat irritation 3. Eat soft foods 4. If continue to have sensation of foreign body, may need EGD (scope procedure to visualize) 5. Call with any questions or concerns
== END 2019-04-01 05:31 | disposition home or self-care (01) ==
LOC: CC.ED 04:29
DX: R09.89 Other specified symptoms and signs involving the circulatory and respiratory systems (principal); I10 Essential (primary) hypertension; Z79.899 Other long term (current) drug therapy
CPT/HCPCS: 87430; 99283; 99284; A9270-GY

== ENCOUNTER → 2020-10-21 | Day surgery (SDC) | payer OTHER ==
[~2020-10-21] MED LIST: Ketamine 200 MG/20 ML MDV ONE; Lactated Ringers 1,000 ML IV SCH; Lidocaine 2% 5 ML SDV ONE; Propofol 200 MG/20 ML SDV ONE; fentaNYL 100 MCG/2 ML SDV ONE
[2020-10-21 11:01] VITALS: BP 156/77; PULSE 52
--- NOTE | 2020-10-21 11:28 | OR ---
DATE OF OPERATION: 10/21/2020 PREOPERATIVE DIAGNOSIS: EPIGASTRIC PAIN. POSTOPERATIVE DIAGNOSIS: GASTRIC ULCER. SURGEON: Pietro Duncan MD PROCEDURE: DIAGNOSTIC EGD WITH BIOPSY X2, JAY JAY. ANESTHESIA: MAC. COMPLICATIONS: None. SPECIMEN: 1. Biopsies x2, gastric ulcer, distal antrum. 2. Antral JAY JAY. FINDINGS: 1. Full-length diagnostic EGD. 2. Large gastric ulcer, distal antrum. RECOMMENDATIONS: The patient is on appropriate therapy in the form of Protonix and Carafate. INDICATIONS: The patient presented to my office with complaints of epigastric pain. We proceeded with diagnostic EGD. DESCRIPTION OF PROCEDURE: The patient was prepped and draped, placed in the left lateral decubitus position. A lubricated Olympus gastroscope was inserted and advanced to the cricopharyngeus area and easily intubated into the esophagus. The esophageal lining was benign in its entire course. The Z-line was crisp and sharp at 39 cm. No spontaneous reflux, distal esophagitis, stricturing, ulceration, or Lakhani's changes were seen. The scope was advanced into the stomach, through the pylorus, and into the second portion of the duodenum. This and the duodenal bulb were benign. The scope was brought back into the stomach and retroflexed. The upper fundus and cardia were unremarkable. Upon straightening, the rest of the fundus and most of the antrum appeared benign. In the distal antrum and peripyloric area. The patient had a large gastric ulcer, nonbleeding. We did do 2 biopsies of this along with a CLOtest. Air was then suctioned, scope removed without complication. KIZZY/OSVALDO /[id number]
== END ==
LOC: CC.SDS 09:26
PROVIDERS: ATTEND Family Medicine
DX: K29.50 Unspecified chronic gastritis without bleeding (principal); K25.9 Gastric ulcer, unspecified as acute or chronic, without hemorrhage or perforation; E78.00 Pure hypercholesterolemia, unspecified; I10 Essential (primary) hypertension; K21.9 Gastro-esophageal reflux disease without esophagitis; Z01.812 Encounter for preprocedural laboratory examination; Z20.822 Contact with and (suspected) exposure to COVID-19; Z79.899 Other long term (current) drug therapy; Z98.890 Other specified postprocedural states
CPT/HCPCS: 00731; 87081; J2001; J2704; J3010; J7120

== ENCOUNTER → 2021-12-01 | Day surgery (SDC) | payer OTHER ==
[~2021-12-01] MED LIST changes: -Lidocaine 2% 5 ML SDV ONE; +Phenylephrine 1% 10 MG/ML SDV ONE
[2021-12-01 10:46] VITALS: BP 151/81; PULSE 59
== END ==
LOC: CC.SDS 07:41
PROVIDERS: ATTEND Family Medicine
DX: D12.3 Benign neoplasm of transverse colon (principal); D12.7 Benign neoplasm of rectosigmoid junction; K59.00 Constipation, unspecified; K57.30 Diverticulosis of large intestine without perforation or abscess without bleeding; E78.5 Hyperlipidemia, unspecified; I10 Essential (primary) hypertension; M50.90 Cervical disc disorder, unspecified, unspecified cervical region; E11.9 Type 2 diabetes mellitus without complications; E55.9 Vitamin D deficiency, unspecified; Z79.899 Other long term (current) drug therapy; Z98.890 Other specified postprocedural states
CPT/HCPCS: 00811; J2370; J2704; J3010; J7120

== ENCOUNTER 2022-03-29 19:51 | Emergency (ER) | payer OTHER ==
[2022-03-29 19:55] VITALS: BP 163/86; PULSE 99
[2022-03-29] MEDS ORDERED: Sodium Chloride 0.9% 1,000 ML IV ONE (20:04)
[2022-03-29] MEDS ORDERED: Sodium Chloride 0.9% 10 ML Syringe FLUSH PRN (20:05)
[2022-03-29] MEDS ORDERED: Ketorolac 30 MG/ML SDV IVPUSH STA (20:23)
[2022-03-29] MEDS ORDERED: Nirmatrelvir/Ritonavir 300 MG/100 MG Dose Pack PO SCH (20:45)
== END 2022-03-29 21:35 | disposition home or self-care (01) ==
LOC: CC.ED 19:51
DX: U07.1 COVID-19 (principal); I10 Essential (primary) hypertension
CPT/HCPCS: 36415; 80053; 81003; 85025; 86140; 87804; 96361; 96374; 99283-25; 99284; A9270-GY; J1885; J7030; U0002

== ENCOUNTER 2022-07-28 21:24 | Emergency (ER) | payer OTHER ==
[2022-07-28 22:11] LABS: CHLORIDE,CL 103 mEq/L (98-106); SODIUM,NA 143 mEq/L (136-145)
[2022-07-28 22:12] LABS: ESTIMATED GFR 36 mL/min (>=60)
[2022-07-28] MEDS: Meclizine 12.5 MG Tab PO ONE (22:45)
[2022-07-28] MEDS: Sodium Chloride 0.9% 1,000 ML IV ONE (22:45)
[2022-07-28] MEDS: Ondansetron 4 MG/2 ML SDV IVPUSH ONE (22:45)
[2022-07-28] MEDS: Take Home: Ondansetron 4 MG Tab.DIS, 2 Tab Pack PO ONE (23:12)
== END 2022-07-28 23:27 | disposition home or self-care (01) ==
LOC: CC.ED 21:24
DX: R42 Dizziness and giddiness (principal); I10 Essential (primary) hypertension; Z79.899 Other long term (current) drug therapy; Z90.710 Acquired absence of both cervix and uterus
CPT/HCPCS: 36415; 80053; 83735; 85025; 96361; 96374; 99284; 99284-25; A9270-GY; J2405; J7030

== ENCOUNTER 2023-07-20 09:16 | Emergency (ER) | payer OTHER ==
[2023-07-20] MEDS ORDERED: Ibuprofen 200 MG Tab PO ONE (09:59)
[2023-07-20 10:03] LABS: BASOPHILS ABSOLUTE AUTO 0.01 10^3/uL (0.00-0.50); BASOPHILS PERCENT AUTO 0.2 % (0-1); EOSINOPHILS ABSOLUTE AUTO 0.03 10^3/uL (0.00-1.50); EOSINOPHILS PERCENT AUTO 0.5 % (0-6); HEMATOCRIT 39.2 % (37.0-47.0); HEMOGLOBIN 13.6 g/dL (12.0-16.0); IMMATURE GRAN ABSOLUTE AUTO 0.01 10^3/uL (0.00-0.49); IMMATURE GRAN PERCENT AUTO 0.2 % (0.0-4.9); LYMPHOCYTES ABSOLUTE AUTO 1.33 10^3/uL (0.60-5.00); LYMPHOCYTES PERCENT AUTO 23.5 % (24-44); MEAN CORPUSCULAR HEMOGLOBIN 29.4 pg (27.0-32.0); MEAN CORPUSCULAR HGB CONC 34.7 g/dL (32.0-36.0); MEAN CORPUSCULAR VOLUME 84.7 fL (83.0-97.0); MONOCYTES ABSOLUTE AUTO 0.26 10^3/uL (0.00-1.50); MONOCYTES PERCENT AUTO 4.6 % (0-10); NEUTROPHILS ABSOLUTE AUTO 4.03 x10^3/uL (1.80-8.00); PLATELET COUNT,PLT 159 10^3/uL (150-400); RED BLOOD CELL COUNT 4.63 x10^6/uL (4.00-5.50); WHITE BLOOD CELL COUNT,WBC 5.7 10^3/uL (4.0-11.0)
[2023-07-20 10:12] VITALS: BP 133/72; PULSE 82
[2023-07-20 10:16] LABS: ALANINE AMINOTRANSFERASE,ALT 36 U/L (12-78); ALBUMIN 4.3 g/dL (3.4-5.0); ALKALINE PHOSPHATASE 95 U/L (46-116); ASPARTATE AMNIOTRANSFERASE,AST 19 U/L (15-37); BILIRUBIN TOTAL 0.7 mg/dL (0.0-1.0); BLOOD UREA NITROGEN,BUN 12 mg/dL (7-18); CALCIUM 9.3 mg/dL (8.4-10.1); CARBON DIOXIDE,CO2 27 mmol/L (21-32); CHLORIDE,CL 101 mEq/L (98-106); CREATININE 0.8 mg/dL (0.6-1.0); ESTIMATED GFR 83 mL/min (>=60); GLUCOSE RANDOM 134 mg/dL (75-99); MAGNESIUM 1.9 mg/dL (1.8-2.4); POTASSIUM,K 3.7 mEq/L (3.5-5.0); PROTEIN TOTAL,TP 8.1 g/dL (6.4-8.2); SODIUM,NA 139 mEq/L (136-145)
[2023-07-20 10:21] LABS: APPEARANCE,URINE CLEAR (CLEAR); BILIRUBIN,URINE NEGATIVE (NEGATIVE); COLOR,URINE YELLOW (YELLOW); GLUCOSE,URINE NEGATIVE (NEGATIVE); KETONES,URINE NEGATIVE (NEGATIVE); LEUKOCYTE ESTERASE,URINE NEGATIVE (NEGATIVE); NITRITE,URINE NEGATIVE (NEGATIVE); OCCULT BLOOD,URINE NEGATIVE (NEGATIVE); PH,URINE 5.5 (4.5-8.0); PROTEIN,URINE NEGATIVE (NEGATIVE); UROBILINOGEN,URINE 0.2 EU/dL (0.2-1.0)
== END 2023-07-20 11:07 | disposition home or self-care (01) ==
LOC: CC.ED 09:16
DX: I10 Essential (primary) hypertension (principal); K21.00 Gastro-esophageal reflux disease with esophagitis, without bleeding; Z79.899 Other long term (current) drug therapy
CPT/HCPCS: 36415; 80053; 81003; 83735; 85025; 99284; A9270-GY